=== PATIENT | male | born 1990 | race African-American/Black ===

== ENCOUNTER 2023-09-16 17:52 | Emergency (ER) | payer MEDICAID ==
[~2023-09-16] VITALS: Ht 162.6 cm; Wt 61.0 kg
[2023-09-16 18:27] VITALS: BP 109/66; PULSE 117; RESP 18; TEMP 98.4; O2SAT 97
[2023-09-16 18:29] LABS: BASOPHILS # (AUTO) 0.1 X10'3 (0-0.2); BASOPHILS % (AUTO) 0.7 % (0-1); EOSINOPHILS % (AUTO) 0 % (0-6); HEMATOCRIT 45.8 % (42.0-52.0); HEMOGLOBIN 15.5 g/dl (14.0-17.9); LYMPHOCYTES # (AUTO) 1.7 X10'3 (1.1-4.8); LYMPHOCYTES % (AUTO) 11.6 % (21-51); MEAN CORPUSCULAR HEMOGLOBIN 28.9 PG (27.0-31.0); MEAN CORPUSCULAR HGB CONC 33.8 g/dL (33.0-36.5); MEAN CORPUSCULAR VOLUME 85.5 FL (78-98); MEAN PLATELET VOLUME 7.6 FL (7.4-10.4); MONOCYTES # (AUTO) 1.1 X10'3 (0-0.9); MONOCYTES % (AUTO) 7.5 % (2-12); NEUTROPHILS # (AUTO) 11.6 X10'3 (1.8-7.7); NEUTROPHILS % (AUTO) 80.2 % (42-75); PLATELET COUNT 451 X10'3 (140-440); RED BLOOD COUNT 5.35 X10'6 (4.70-6.10); RED CELL DISTRIBUTION WIDTH 13.1 % (11.5-14.5); WHITE BLOOD COUNT 14.5 X10'3 (4.5-11.0)
[2023-09-16 19:36] LABS: ALANINE AMINOTRANSFERASE 19 U/L (12-78); ALBUMIN 3.9 G/DL (3.4-5.0); ALBUMIN/GLOBULIN RATIO 1.1 (1.1-1.5); ALKALINE PHOSPHATASE 42 IU/L (46-116); ANION GAP 14 (8-16); ASPARTATE AMINO TRANSFERASE 17 U/L (10-37); BILIRUBIN,TOTAL 0.7 MG/DL (0.1-1.0); BLOOD UREA NITROGEN 10 MG/DL (7-18); BUN/CREATININE RATIO 10.8 (10.0-20.0); CALCIUM 8.7 MG/DL (8.5-10.1); CHLORIDE 107 MMOL/L (99-107); CREATININE 0.93 MG/DL (0.60-1.10); GLUCOSE 156 MG/DL (70-104); POTASSIUM 3.1 MMOL/L (3.5-5.1); SODIUM 144 MMOL/L (135-145); TOTAL CARBON DIOXIDE 23.4 MMOL/L (24-32); TOTAL PROTEIN 7.4 G/DL (6.4-8.2); eCRCL 93 ML/MIN; eGFR > 90 ML/MIN
[2023-09-16 19:42] LABS: PRO BRAIN NATRIURETIC PEPTIDE 188 PG/ML (0-125)
[2023-09-16] MEDS ORDERED: buprenorphine/naloxone 8MG-2MG SUBlingual film SL SCH (20:30)
[2023-09-16] MEDS: buprenorphine/naloxone 8MG-2MG SUBlingual film SL ONE (20:42)
[2023-09-16 20:57] LABS: TOTAL CELLS COUNTED 100
[2023-09-16 20:58] LABS: PLATELET ESTIMATE INCREASED
== END 2023-09-16 20:47 | disposition home or self-care (01) ==
LOC: ER 17:52
DX: R07.89 Other chest pain (principal); F11.93 Opioid use, unspecified with withdrawal
CPT/HCPCS: 36415; 71045; 80053; 83880; 84484; 85007; 85025; 93005; 99285

== ENCOUNTER 2023-09-17 23:50 | Emergency (ER) | payer MEDICAID ==
[~2023-09-17] VITALS: Ht 165.1 cm; Wt 61.0 kg
[2023-09-18] MEDS: buprenorphine/naloxone 8MG-2MG SUBlingual film SL STA (00:58)
[2023-09-18] MEDS ORDERED: BUPR1FIL5 SL ×2 (02:13→02:19)
[2023-09-18 04:37] VITALS: BP 149/67; PULSE 84; RESP 16; TEMP 98.4; O2SAT 99
== END 2023-09-18 04:40 | disposition home or self-care (01) ==
LOC: ER 23:51
DX: F11.90 Opioid use, unspecified, uncomplicated (principal); Z79.899 Other long term (current) drug therapy
CPT/HCPCS: 99283